=== PATIENT | female | born 1995 | race African-American/Black ===

== ENCOUNTER 2021-01-27 02:40 | Emergency (ER) | payer MEDICAID ==
[~2021-01-27] VITALS: Ht 177.8 cm; Wt 113.0 kg
[2021-01-27] MEDS ORDERED: BACITRACIN ZINC OINT UDPKT TOP ONE (03:15)
[2021-01-27] MEDS ORDERED: TETANUS, DIPHTHERIA, PERTUSSIS VAC/PF 0.5ML (>7YR OLD) IM ONE (03:15)
[2021-01-27] MEDS ORDERED: ACETAMINOPHEN 325MG TABLET PO ONE (03:15)
[2021-01-27] MEDS ORDERED: LIDOCAINE HCL/PF 1% 10 MG/ML 5ML VIAL IJ ONE (03:15)
[2021-01-27] MEDS ORDERED: TOPUD MT (04:10)
[2021-01-27 06:00] VITALS: BP 154/88
== END 2021-01-27 06:00 | disposition home or self-care (01) ==
LOC: ER 02:40
DX: S01.112A Laceration without foreign body of left eyelid and periocular area, initial encounter (principal); W18.39XA Other fall on same level, initial encounter; Y93.89 Activity, other specified; Y92.89 Other specified places as the place of occurrence of the external cause; Y99.8 Other external cause status
CPT/HCPCS: 12013; 70450; 90471; 90715; 99284; J3490

== ENCOUNTER 2021-02-03 19:42 | Emergency (ER) | payer MEDICAID ==
[~2021-02-03] VITALS: Ht 165.1 cm; Wt 129.0 kg
[~2021-02-03 19:42] MED LIST: TOPUD MT
[2021-02-03 22:57] VITALS: BP 125/65
== END 2021-02-03 23:23 | disposition home or self-care (01) ==
LOC: ER 19:42
DX: S01.112D Laceration without foreign body of left eyelid and periocular area, subsequent encounter (principal); X58.XXXD Exposure to other specified factors, subsequent encounter
CPT/HCPCS: 99281; Z7610